=== PATIENT | male | born 1985 | race Caucasian/White ===

== ENCOUNTER 2021-10-23 07:35 | Day surgery (SDC) | payer OTHER ==
[2021-10-23] VITALS (159 sets, daily range): BP systolic 82–136; BP diastolic 41–96
--- NOTE | 2021-10-23 07:50 | NUR ---
PATIENT AMBULATORY TO MED SURG. CONSENTS OBTAINED. VITAL SIGNS OBTAINED. DR RABAGO NOTIFIED. NEW ORDERS RECEIVED. ADMISSION ASSESSMENT COMPLETED AT THIS TIME. IV ESTABLISHED LABS SENT FOR REFERENCE. ORIENTED PATIENT TO ROOM AND UNIT. CALL LIGHT IN REACH. WILL CONTINUE TO MONITOR.
[2021-10-23 09:14] LABS: HEMATOCRIT 38.4 % (39.0-50.0); HEMOGLOBIN 12.3 g/dl (14.0-18.0); IMMATURE GRANULOCYTES 0.1 % (0.0-5.0); MEAN CELL VOLUME 87.5 fL CALC (80.0-100.0); NEUT# 4.88 thou/uL (1.82-7.42); RED BLOOD COUNT 4.39 mill/uL (4.70-6.10); RED CELL DISTRI WIDTH 12.8 % (11.5-15.5)
[2021-10-23 09:34] LABS: BUN 18 mg/dL (9-20); CREATININE 0.7 mg/dL (0.7-1.3); GFR > 60 ML/MIN (>=60 (CALC)); GFR FOR AFR.AMER. > 60 ML/MIN (>=60 (CALC))
[2021-10-23 10:27] LABS: ALBUMIN 3.7 g/dL (3.2-5.0); ALKALINE PHOSPHATASE 78 u/l (38-126); ANION GAP 9 (6-22 (CALC)); BILIRUBIN, TOTAL 0.1 mg/dL (0.0-1.4); BUN/CREATININE RATIO 25 (12-20 (CALC)); CARBON DIOXIDE 32 mmol/l (22-30); CHLORIDE 102 mmol/l (95-108); POTASSIUM 4.2 mmol/l (3.5-5.1); SGOT/AST 23 u/l (17-59); SODIUM 140 mmol/l (137-146)
--- NOTE | 2021-10-23 10:30 | NUR ---
DR RABAGO AT BEDSIDE AT THIS TIME.
--- NOTE | 2021-10-23 11:30 | NUR ---
Induction Note Patient to [facility]R procedure room. Time out performed at 1133. Patient placed on monitors, Hipolito hugger, bilateral wrist restraints applied for ET tube protection. Versed 5mg given IV push at 1134 Tourniquet applied to RIGHT arm Lidocaine 100mg given at 1135 IV push followed by Rocoronium 10mg at 1135 IV push and held for 90 seconds. Propofol bolus of 110 mg given at 1136 IV push. Succinylcholine 80mg given IV push at 1137. Smooth intubation with 7.5 ETT. Positive CO2. Positive Auscultation for air exchange. Patient placed on ventilator for spontaneous ventilation. Placed on Propofol IV drip at 1139. OG inserted. Positive air on auscultation. Positive gastric content. Stomach washed at this time. Naltrexone 100mg given via OG Tube. OG clamped for 45 minutes at 1150. Will monitor patient for symptoms of withdrawal and adjust propfol accordingly.
--- NOTE | 2021-10-23 12:35 | NUR ---
OG open note OG open at this time. Gastric content draining into drainage bag. OG to drain for 45 minutes. Propofol will be titrated down based on patient.
--- NOTE | 2021-10-23 13:30 | NUR ---
OG close note Stomach washed at this time. Naltrexone 50 mg with Clonidine 0.2 mg via OG tube. OG will be clamped for 45 minutes.
--- NOTE | 2021-10-23 16:15 | NUR ---
Extubation note Closing medications given Benadryl 50mg IV push, Decadron 10mg IV push,Magnesium 4 grams IV, Zofran 8mg IV push, Octreotide 100mcg SC. Stomach washed out prior to extubation. Suctioned gastric content. OG removed. Patient extubated. Propofol Discontinued. Wrist restraints removed. Hipolito hugger Removed. See ANR Moderate sedate recovery record for further notes and assessment.
--- NOTE | 2021-10-23 16:39 | NUR ---
patient transferred upstairs via bed.
--- NOTE | 2021-10-23 16:42 | NUR ---
PT ARRIVED BACK TO FLOOR VIA BED. PT RESTING AT THIS TIME. VSS. CALL LIGHT WITHIN REACH. WILL CONTINUE TO MONITOR.
--- NOTE | 2021-10-23 19:13 | NUR ---
PT RESTING IN BED, NO SIGNS OF DISTRESS NOTED, RESP EVEN AND UNLABORED. PT IN BED RESTLESS, GROANING AND YELLING OUT PERIODICALLY. PT A&OX3, DOES NOT OPEN EYES, PT REQUESTING MEDICATION TO HELP WITH ANXIETY, PT MEDICATED PER MAR. ASSISTED PT TO SITTING POSITION AND DRANK PO FLUIDS, TOLERATED WELL. IVF INFUSING TO RFA. PT 100% RA, SKIN INTACT. ASSESSMENT REVIEW COMPLETED, CALL LIGHT IN REACH,CONTINUE TO MONITOR.
--- NOTE | 2021-10-23 20:33 | NUR ---
PT C/O NAUSEA, MEDICATED WITH ZOFRAN, NO EMESIS AT THIS TIME, RESP EVEN AND UNLABORED. CALL LIGHT IN REACH,CONTINUE TO MONITOR.
--- NOTE | 2021-10-23 22:57 | NUR ---
PT ASSISTED TO BSC PT HAD A VERY LARGE FORMED HARD STOOL; PT VOIDED YELLOW URINE. ASSISTED BACK TO BED. BED ALARM FOR SAFETY, CALL LIGHT IN REACH,CONTINUE TO MONITOR.
[2021-10-24 03:37] VITALS: BP 125/82
--- NOTE | 2021-10-24 03:39 | NUR ---
PT CONTINUES TO HAVE EMESIS, PT IN HIGH FOWLERS EMESIS BASIN AT BEDSIDE, MEDICATED WITH REGLAN, VITALS OBTAINED, RESP EVEN AND UNLABORED. COOL WASHCLOTH PROVIDED. CALL LIGHT IN REACH,CONTINUE TO MONITOR.
[2021-10-24 05:13] LABS: HEMATOCRIT 41.1 % (39.0-50.0); HEMOGLOBIN 13.4 g/dl (14.0-18.0); IMMATURE GRANULOCYTES 0.1 % (0.0-5.0); MEAN CELL VOLUME 84.9 fL CALC (80.0-100.0); MEAN CORPUSCULAR HGB 27.7 pG CALC (26.0-32.0); MEAN CORPUSCULAR HGB CONC 32.6 g/dL CAL (32.0-36.0); RED BLOOD COUNT 4.84 mill/uL (4.70-6.10); RED CELL DISTRI WIDTH 12.6 % (11.5-15.5)
[2021-10-24 05:47] LABS: ALKALINE PHOSPHATASE 94 u/l (38-126); BUN 12 mg/dL (9-20); BUN/CREATININE RATIO 20 (12-20 (CALC)); CHLORIDE 100 mmol/l (95-108); CREATININE 0.6 mg/dL (0.7-1.3); GFR > 60 ML/MIN (>=60 (CALC)); GFR FOR AFR.AMER. > 60 ML/MIN (>=60 (CALC)); MAGNESIUM 1.8 mg/dL (1.6-2.3); SGOT/AST 22 u/l (17-59); SODIUM 136 mmol/l (137-146); TOTAL PROTEIN 7.6 g/dL (6.3-8.2)
[2021-10-24 05:49] LABS: POTASSIUM 3.8 mmol/l (3.5-5.1)
[2021-10-24 05:54] LABS: ANION GAP 17 (6-22 (CALC)); BILIRUBIN, TOTAL 0.5 mg/dL (0.0-1.4); CARBON DIOXIDE 23 mmol/l (22-30)
[2021-10-24 06:21] VITALS: BP 131/89
--- NOTE | 2021-10-24 06:50 | NUR ---
RECIEVED REPORT FROM TRACY KINGSTON
[2021-10-24 07:31] VITALS: BP 131/89
--- NOTE | 2021-10-24 07:44 | NUR ---
PT RESTING IN HIGH FOLWERS POSITION.ASSESSMENT AND VITALS COMPLETED.PT VERY DROWSY AT THIS TIME. AWAKES TO PAINFUL STIMULI.RESPIRATIONS EVEN AND UNLABORED ON ROOM AIR.HEART RHYTHM NORMAL. BOWEL SOUNDS ACTIVE. PT INCONT OF MODERATE BM AT THIS TIME, PERICARE PROVIDED. #20G RFA AND #18G LH FLUSHED, SITE PATENT. PT ABLE TO TOLERATE MEDICATIONS. NO SIGNS OF ANY NEEDS AT THIS TIME. ALL SAFTEY PRECAUTIONS ARE IN PLACE WITH CALL LIGHT IN REACH. BED ALARM ACTIVE.
--- NOTE | 2021-10-24 11:12 | NUR ---
PT RESTING IN SEMI FOWLERS POSITION. AWAKENS TO SPEECH. PT A/OX3. REQUESTING TO SEE . PT INFORMED OF NO VISITOR POLICY. PT YET TO VOID FOR THIS BLADE FILER. PT STATES HE WENT "EARLIER ON THE BSC" PT HAS NOT BEEN UP FOR BLADE FILER.ATTEMPTED TO BLADDER SCAN, PT DENIES HAVING THE URGE TO VOID. WILL CONTINUE TO MONITOR. SAFTEY PRECAUTIONS IN PLACEW TIH CALL LIGHT IN REACH. BED ALARM ACTIVE
--- NOTE | 2021-10-24 13:01 | NUR ---
PT UP TO VOID, LARGE AMOUNT NOTED. STANDBY ASSIST NEEDED. PT ASSISTED INTO SHOWER, POST HOLE DIGGER AT SIDE TO ASSIST. PT REQUEST REGULAR CLOTHES TO PUT ON.INFORMED PT OF NEEDED TO BRUSH TEETH DUE TO RESIDUE ON TEETH. PT STATES "LATER". PT ASSISTED BACK INTO BED. ALL SAFTEY PRECAUTIONS IN PLACE WITH CALL LIGHT IN REACH. BED ALARM ACTIVE
--- NOTE | 2021-10-24 14:11 | NUR ---
DR RABAGO AT BEDSIDE
--- NOTE | 2021-10-24 15:08 | NUR ---
ATTEMPTED TO EDUCATE PT ON DC INSTURCTIONS. PT DROWSY BUT TOLERATED SCHEDULED PO MEDICATIONS.SAFTEY PRECAUTIONS IN PLACE WITH CALL LIGHT IN REACH.
--- NOTE | 2021-10-24 16:19 | NUR ---
PT ASSISTED TO BATHROOM TO BRUSH TEETH. ASSISTED BACK TO BED. TURKEY SANDWHICH AND GIDIAMONDAL PROVIDED. PT TOLERATING WELL. PT EDUCATED ON DC INSTRUCTIONS. PT VERBALIZED UNDERSTANDING.SAFTEY PRECAUTIONS IN PLACE WITH CALL LIGHT IN REACH. BED ALARM ACTIVE
--- NOTE | 2021-10-24 17:00 | NUR ---
IV SITE REMOVED ZABRINA THIS TIME WITH CATH INTACT. PT AMBULATED HALLS WITH STEADY AGIT. AWAITING DC.
--- NOTE | 2021-10-24 17:05 | NUR ---
Discharge instructions given. Patient verbalizes understanding of same. Discharged in stable condition via Ambulatory to Home with staff. All belongings sent with pt. PT DC HOME. PT AMBULATED WITH STEADY GAIT, RADHA MANUEL STAFF AT SIDE. ALL DC NSTRUCTIONS AND PERSONAL BELONGINGS WITH PT.
== END 2021-10-24 17:05 | disposition home or self-care (01) | DRG 897 ==
LOC: ANR 07:35 → MS2 07:36 → ANR 15:15
PROVIDERS: ATTEND Anesthesiology
DX: F11.20 Opioid dependence, uncomplicated (principal)
CPT/HCPCS: J2060; J2354; J3475